=== PATIENT | female | born 1985 | race Caucasian/White ===

== ENCOUNTER → 2017-03-27 | Outpatient (CLI) | payer OTHER ==
[~2017-03-27] MED LIST: ADULT ONE DAI200 MCG PO; HYDROCODON-ACE1 EAC7; HYDROCODON-ACE1 EAC7 PO; IBUPROFEN200 M2 PO; REGLAN 10 MG TA10 M1 PO; TAMSULOSIN HCL0.4 M1 PO
== END ==
LOC: RAD 09:19 → ULTRA 14:03 → RAD 14:03
DX: N63 Unspecified lump in breast (principal); R92.8 Other abnormal and inconclusive findings on diagnostic imaging of breast